=== PATIENT | female | born 1940 | race Caucasian/White ===

== ENCOUNTER 2022-08-29 18:28 | Inpatient (IN) | payer BC, MEDICARE ==
[~2022-08-29 18:28] MED LIST: Iopamidol-370 76% 500 ML 1 ML ONE
[2022-08-29 19:29] LABS: #Neutrophils 8.8 thou/uL (1.40-6.50); %Basophils 0.2 % (0.0-1.0); %Eosinophils 0.3 % (0.0-10.0); %Lymphocytes 23.4 % (21.0-51.0); %Monocytes 7.8 % (0.0-10.0); %Neutrophils 68.2 % (42.0-75.0); Hemoglobin 14.8 g/dL (12.0-16.0); Mean Corpuscular HGB CONC 34.5 g/dL (32.0-36.0); Mean Corpuscular Hemoglobin 35.3 pg (27.0-31.0); Mean Platelet Volume 9.3 fL (7.4-10.4); Platelet Count 166 10x3/uL (130-400); RBC Distribution Width 12.5 % (11.5-14.5); Red Blood Cell (RBC) Count 4.19 mill/uL (4.20-5.40); White Blood Cell (WBC) Count 12.9 10x3/uL (4.8-10.8)
[2022-08-29] MEDS ORDERED: Mag-Al 1200 mg/1200 mg/30 ML UDCUP ONE (19:40)
[2022-08-29] MEDS ORDERED: Lidocaine Viscous Sol 2% 15 ml UD Cup ONE (19:40)
[2022-08-29 19:49] LABS: ALT (SGPT) 16 U/L (8-55); AST (SGOT) 21 U/L (5-34); Albumin 4.3 g/dL (3.4-4.8); Alkaline Phosphatase 55 U/L (40-110); Anion Gap 18 mmol/L (10-20); BUN (Urea Nitrogen) 26 mg/dL (9.8-20.1); Bilirubin, Total 0.8 mg/dL (0.2-1.2); CK (CPK) 152 U/L (29-168); Calc. Creatinine Clearance 0 mL/min (70-130); Calcium 9.5 mg/dL (7.8-10.44); Carbon Dioxide 26 mmol/L (23-31); Chloride 97 mmol/L (98-107); Estimated GFR 38; Glucose 112 mg/dL (83-110); Lipase 8 U/L (8-78); Potassium 4.3 mmol/L (3.5-5.1); Protein, Total 7.3 g/dL (5.8-8.1); Sodium 137 mmol/L (136-145)
[2022-08-29 19:59] LABS: Bilirubin Negative (Negative); Blood, Urine Trace (Negative); Clarity Clear (Clear); Glucose, Urine (Dipstick) Normal (Negative); Ketone, Urine 10 mg/dL (Negative); Leukocyte 25 Leu/uL (Negative); Nitrite Negative (Negative); Protein, Urine (Dipstick) 50 mg/dL (Neg-Trace); Specific Gravity, Urine 1.023 (1.002-1.036); pH, Urine 5.5 (5.0-9.0)
[2022-08-29 20:13] LABS: RBC/HPF 0-3 HPF (0-3)
[2022-08-29 20:14] LABS: Squamous Epithelial 0-3 HPF (0-3)
[2022-08-29] MEDS ORDERED: Promethazine HCl 25 MG in Sodium Chloride 0.9% 50 ML IVPB SCH (20:15)
[2022-08-29] MEDS: Sodium Chloride 0.9% 1,000 ML IV SCH (23:40)
[2022-08-29] MEDS ORDERED: Senokot S 8.6-50 MG TAB PO PRN (23:43)
[2022-08-29] MEDS ORDERED: Bisacodyl 5 MG TAB PO PRN (23:43)
[2022-08-29] MEDS ORDERED: Ondansetron PF 4 MG/2 ML Vial IVP PRN (23:45)
[2022-08-29] MEDS ORDERED: Acetaminophen 325 MG TAB PO PRN (23:45)
[2022-08-29] MEDS ORDERED: Ondansetron ODT 4 MG TAB SL PRN (23:45)
[2022-08-29] MEDS ORDERED: Dextrose 50% Abboject 50 ML SYRINGE SLOW IVP PRN (23:47)
[2022-08-29] MEDS ORDERED: HumaLOG 300 UNITS/3 ML VIAL SC PRN (23:47)
[2022-08-29] MEDS ORDERED: Dextrose 5% in Water 1,000 ML IV PRN (23:47)
[2022-08-30] MEDS: Lactated Ringer's 1,000 ML IV SCH ×2 (00:51→13:18)
[2022-08-30 01:07] VITALS: BMI 40.1
[2022-08-30 01:48] LABS: SARS-CoV-2 NAA Rapid Test Not Detected (NotDetected)
[2022-08-30] MEDS: Sodium Chloride 0.9% 1,000 ML IV SCH (02:10)
[2022-08-30 05:48] LABS: #Lymphocytes 2.5 thou/uL (1.20-3.40); %Basophils 0.2 % (0.0-1.0); %Eosinophils 0.4 % (0.0-10.0); %Lymphocytes 21.5 % (21.0-51.0); %Monocytes 8.6 % (0.0-10.0); %Neutrophils 69.4 % (42.0-75.0); Hemoglobin 13.6 g/dL (12.0-16.0); Mean Corpuscular HGB CONC 33.5 g/dL (32.0-36.0); Mean Corpuscular Hemoglobin 34.7 pg (27.0-31.0); Mean Platelet Volume 9.4 fL (7.4-10.4); Platelet Count 161 10x3/uL (130-400); RBC Distribution Width 12.4 % (11.5-14.5); Red Blood Cell (RBC) Count 3.92 mill/uL (4.20-5.40); White Blood Cell (WBC) Count 11.6 10x3/uL (4.8-10.8)
[2022-08-30 06:07] LABS: Anion Gap 15 mmol/L (10-20); BUN (Urea Nitrogen) 25 mg/dL (9.8-20.1); Calc. Creatinine Clearance 60 mL/min (70-130); Calcium 9.1 mg/dL (7.8-10.44); Carbon Dioxide 31 mmol/L (23-31); Chloride 99 mmol/L (98-107); Estimated GFR 45; Glucose 94 mg/dL (83-110); Potassium 3.7 mmol/L (3.5-5.1); Sodium 141 mmol/L (136-145)
[2022-08-30] MEDS: Famotidine/PF 20 mg/2ml Vial SLOW IVP SCH (08:45)
[2022-08-30] MEDS: Sertraline 100 MG TAB PO SCH (08:45)
[2022-08-30] MEDS: Losartan 25 MG TAB PO SCH (08:46)
[2022-08-30] MEDS: Insulin Glargine 30 UNITS/0.3 ML VIAL SC SCH (08:46)
[2022-08-30] MEDS: Ezetimibe 10 MG TAB PO SCH (08:46)
[2022-08-30] MEDS: Famotidine 20 MG TAB PO SCH (08:46)
[2022-08-30] MEDS ORDERED: Losartan 25 MG TAB PO SCH (09:00)
[2022-08-30] MEDS: Potassium Chloride 10 MEQ in Dextrose 5%-Lactated Ringers 1,000 ML IV SCH (19:48)
[2022-08-30] MEDS: Simvastatin 10 MG TAB PO SCH (19:49)
[2022-08-31 07:14] LABS: Hemoglobin 12.7 g/dL (12.0-16.0); Mean Corpuscular HGB CONC 32.4 g/dL (32.0-36.0); Mean Corpuscular Hemoglobin 34.6 pg (27.0-31.0); RBC Distribution Width 12.3 % (11.5-14.5); Red Blood Cell (RBC) Count 3.67 mill/uL (4.20-5.40); White Blood Cell (WBC) Count 8.4 10x3/uL (4.8-10.8)
[2022-08-31 07:18] LABS: Anion Gap 14 mmol/L (10-20); BUN (Urea Nitrogen) 24 mg/dL (9.8-20.1); Calc. Creatinine Clearance 70 mL/min (70-130); Calcium 8.4 mg/dL (7.8-10.44); Carbon Dioxide 25 mmol/L (23-31); Chloride 106 mmol/L (98-107); Estimated GFR 54; Glucose 74 mg/dL (83-110); Potassium 3.9 mmol/L (3.5-5.1); Sodium 141 mmol/L (136-145)
[2022-08-31] MEDS: Famotidine 20 MG TAB PO SCH (07:29)
[2022-08-31 07:34] LABS: #Eosinphils 0.2 thou/uL (0.0-0.7); #Lymphocytes 2.3 thou/uL (1.20-3.40); #Monocytes 0.6 thou/uL (0.11-0.59); #Neutrophils 5.4 thou/uL (1.40-6.50); %Basophils 0.2 % (0.0-1.0); %Eosinophils 2.5 % (0.0-10.0); %Lymphocytes 26.8 % (21.0-51.0); %Monocytes 6.6 % (0.0-10.0); %Neutrophils 63.9 % (42.0-75.0); Mean Platelet Volume 9.8 fL (7.4-10.4); Platelet Count 107 10x3/uL (130-400); Platelet Morphology Comment Appears Decreased
[2022-08-31] MEDS: Potassium Chloride 10 MEQ in Dextrose 5%-Lactated Ringers 1,000 ML IV SCH ×2 (08:02→22:39)
[2022-08-31] MEDS: Insulin Glargine 30 UNITS/0.3 ML VIAL SC SCH (08:04)
[2022-08-31] MEDS: Famotidine/PF 20 mg/2ml Vial SLOW IVP SCH (08:04)
[2022-08-31] MEDS: Ezetimibe 10 MG TAB PO SCH (08:05)
[2022-08-31] MEDS: Sertraline 100 MG TAB PO SCH (08:06)
[2022-08-31] MEDS: Losartan 25 MG TAB PO SCH (08:06)
[2022-08-31] MEDS ORDERED: MD-Gastroview 120 ML BOT ONE (11:00)
[2022-08-31 16:54] LABS: Phosphorus 3.5 mg/dL (2.3-4.7)
[2022-08-31] MEDS: Simvastatin 10 MG TAB PO SCH (22:39)
[2022-09-01] MEDS: Potassium Chloride 10 MEQ in Dextrose 5%-Lactated Ringers 1,000 ML IV SCH (07:26)
[2022-09-01] MEDS: Sertraline 100 MG TAB PO SCH (08:11)
[2022-09-01] MEDS: Ezetimibe 10 MG TAB PO SCH (08:11)
[2022-09-01] MEDS: Famotidine 20 MG TAB PO SCH (08:11)
[2022-09-01] MEDS: Losartan 25 MG TAB PO SCH (08:12)
[2022-09-01] MEDS: Famotidine/PF 20 mg/2ml Vial SLOW IVP SCH (08:22)
[2022-09-01 13:22] VITALS: BP 127/85; TEMP 98.1
== END 2022-09-01 15:15 | disposition home or self-care (01) | DRG 389 ==
LOC: ERS 18:28 → SURG A 22:18 → OBSVTOIN 08-30 12:24
PROVIDERS: ADMIT Student in an Organized Health Care Education/Training Program; ATTEND Internal Medicine
PROC: 0D9670Z Drainage of Stomach with Drainage Device, Via Natural or Artificial Opening (ICD-10-PCS; principal; 2022-08-30)
DX: K56.51 Intestinal adhesions [bands], with partial obstruction (principal); N17.9 Acute kidney failure, unspecified; Z20.822 Contact with and (suspected) exposure to COVID-19; I10 Essential (primary) hypertension; E78.5 Hyperlipidemia, unspecified; E11.40 Type 2 diabetes mellitus with diabetic neuropathy, unspecified; F32.A Depression, unspecified; Z90.49 Acquired absence of other specified parts of digestive tract; Z89.512 Acquired absence of left leg below knee; Z89.511 Acquired absence of right leg below knee
CPT/HCPCS: 36415; 36416; 51701; 74018; 74177; 74250; 80048; 80053; 81003; 81015; 82550; 83690; 83735; 84100; 85025; 96372; 96374; 96375; G0378; J1650; J1815; J2550; J3480; J7050; J7120; Q9963; Q9967; S0028; U0002

== ENCOUNTER 2023-10-10 10:21 | Outpatient (CLI) | payer MEDICARE, BC | END 2023-10-10 10:22 | disposition home or self-care (01) | LOC: BICMAMMO 10:21 | PROVIDERS: ATTEND Internal Medicine | DX: Z12.31 Encounter for screening mammogram for malignant neoplasm of breast (principal); Z80.3 Family history of malignant neoplasm of breast; Z91.89 Other specified personal risk factors, not elsewhere classified | CPT/HCPCS: 77063; 77067 ==